=== PATIENT | female | born 1955 | race Caucasian/White ===

== ENCOUNTER → 2016-07-20 | Outpatient (CLI) | payer OTHER ==
--- NOTE | 2016-07-20 14:42 | DX ---
Chest, Two Views at 1325 hours History: Pleural effusion. Dyspnea.. Comparison: April 2014 Findings: Cardiac silhouette is within normal range. Patchy opacity in the right cardiophrenic angle probably representing pneumonia with minimal right pleural effusion. Mild bilateral peribronchial thi ckening again noted. IMPRESSION: 1. Suspect early right lower lobe pneumonia with minimal right pleural effusion. 2. Recommend follow-up until clear.
== END ==
LOC: CIMAGING 13:15
PROVIDERS: ATTEND Internal Medicine Critical Care Medicine
DX: R91.8 Other nonspecific abnormal finding of lung field (principal); J90 Pleural effusion, not elsewhere classified
CPT/HCPCS: 71020-PO

== ENCOUNTER → 2016-11-09 | Outpatient (CLI) | payer OTHER | LOC: CIMAGING 07:55 | PROVIDERS: ATTEND Internal Medicine | DX: K74.60 Unspecified cirrhosis of liver (principal); N20.0 Calculus of kidney | CPT/HCPCS: 76705-PO ==

== ENCOUNTER → 2016-11-15 | Outpatient (CLI) | payer OTHER | LOC: FIMAGING 09:36 | PROVIDERS: ATTEND Family Medicine | DX: D17.21 Benign lipomatous neoplasm of skin and subcutaneous tissue of right arm (principal) ==

== ENCOUNTER → 2017-02-19 | Outpatient (CLI) | payer OTHER ==
[~2017-02-19] MED LIST: IOPAMIDOL (ISOVUE 370) 100 ML BTL IV ONE
== END ==
LOC: CIMAGING 09:11
DX: I67.1 Cerebral aneurysm, nonruptured (principal)
CPT/HCPCS: 70496-PO; Q9967

== ENCOUNTER 2017-04-20 16:36 | Emergency (ER) | payer OTHER ==
[2017-04-20 16:55] VITALS: TEMP 97.7
[2017-04-20] MEDS ORDERED: NS 1,000 ML IV ONE (17:02)
--- NOTE | 2017-04-20 17:11 | CPEKG ---
Heart Rate: 99 RR Interval: 606 P-R Interval: 132 QRSD Interval: 88 QT Interval: 372 QTC Interval: 478 P [place]: -1 QRS [place]: 54 T Wave [place]: 73 EKG Severity - NORMAL ECG - EKG Impression: SINUS RHYTHM Electronically Signed By: Kaz Cruz 20-Apr-2017 22:15:58
--- NOTE | 2017-04-20 17:19 | EDPHY ---
H & P Stated Complaint: Pt. states had another stent placed 04/18 for brain aneurysm, pain llq,dizzy Time Seen by Provider: 04/20/17 16:50 HPI/ROS: This patient had a interventional radiology procedure at [facility] yesterday for cerebral aneurysm with vascular access in the left lower belly who was discharged without complications today and while walking had abrupt onset of severe left lower belly/groin pain 9/10 intensity sharp in nature followed by onset of lightheadedness shortly prior to arrival. She complains of continuing increasing lower abdominal pain. Her asked for a wheelchair to assist in getting her from his private vehicle the brought her in with. The patient reports associated lightheadedness and feeling of tingling in the left leg. ROS: Constitutional: Positive for fatigue HEENT: No complaints no headache. Pulmonary: Reports shortness of breath. Cardiovascular: She complains of chest pain during my exam of moderate intensity achy in nature substernal location GI: As per HPI : No complaints Integumentary: No complaints 10 point ROS is otherwise negative. Source: Patient, Family - Personal History Tetanus Vaccine Date: < 10 years - Medical/Surgical History PMH: Cerebral aneurysm Hx Asthma: No Hx Chronic Respiratory Disease: Yes Hx Diabetes: Yes Hx Cardiac Disease: No Hx Renal Disease: No Hx Cirrhosis: No Hx Alcoholism: No Hx HIV/AIDS: No Hx Splenectomy or Spleen Trauma: No Other PMH: Tubal ligation, asthma, COPD, HTN, brain aneurysm repair, parathyroid surgery, right carotid surgery, alcoholism - Social History Smoking Status: Former smoker Alcohol Use: Rarely Drug Use: None - Physical Exam Exam: Vital signs are notable for hypotension with the systolic pressure on arrival 75 recheck with manual-less than 75 systolic. Pulse of 105 mildly tachypneic. O2 sat 95% room air General Appearance: Alert, some distress due to pain. Eyes: Pupils equal and round no pallor or injection. ENT, Mouth: Mucous membranes moist. Respiratory: There are no retractions, lungs are clear to auscultation. Cardiovascular: Tachycardic. No murmur gallop or rub. Pulses feel weak but symmetric-dorsalis pedis popliteal bilateral lower extremities. Gastrointestinal: Distended, exquisite tenderness in lower belly parent vascular access site left lower belly just superior to the inguinal canal clean dry intact 8 mm wound with no dressing no bleeding Neurological: GCS 15 with no focal deficits. Skin: Warm and dry, no rashes. Musculoskeletal: Neck is supple nontender. Extremities are symmetrical, full range of motion. Psychiatric: Patient is anxious. DIFFERENTIAL DIAGNOSIS: After history and physical exam differential diagnosis was considered for hemorrhagic shock, bleeding from vascular access site, intra- abdominal hematoma, acute abdomen, vasovagal from postsurgical pain, mi, anemia Constitutional: Initial Vital Signs Temperature (C) 36.5 C 04/20/17 16:51 Heart Rate 112 H 04/20/17 16:51 Respiratory Rate 24 H 04/20/17 16:51 Blood Pressure 90/58 L 04/20/17 16:51 O2 Sat (%) 95 04/20/17 16:51 O2 Delivery Mode Room Air Allergies/Adverse Reactions: erythromycin base [Erythromycin Base] Allergy (Verified 04/20/17 16:38) losartan Allergy (Verified 04/20/17 16:50) Sulfa (Sulfonamide Antibiotics) Allergy (Verified 04/20/17 16:50) ANTIHISTAMINES Allergy (Uncoded 04/20/17 16:38) HCTZ Allergy (Uncoded 04/20/17 16:49) Home Medications: Medication Instructions Recorded Fluticasone/Salmeterol [Advair 1 each IH 05/25/12 250-50 Diskus] Furosemide 20 mg PO 05/25/12 MAGNESIUM [Magnesium Oxide 200 mg] 05/25/12 Metoprolol Tartrate 25 mg PO 05/25/12 Sodium Chloride 05/25/12 predniSONE [Prednisone] 10 mg PO 05/25/12 Hydrocodone Bit/Acetaminophen 1 tab PO Q4-6PRN PRN 09/06/12 [Vicodin ES] Simvastatin 1 gm MC 09/06/12 Guaifenesin/Codeine Phosphate 10 ml PO Q6 PRN #120 ml 07/02/13 [Guaifenesin-Codeine Solution] Oseltamivir Phosphate [Tamiflu 75 75 mg PO BIDMEAL 5 Days cap 07/02/13 mg (RX)] Medical Decision Making - Diagnostics EKG Interpretation: 12 lead EKG performed at 5:09 p.m. reveals sinus rhythm at 99 Intervals: Normal throughout Her axis: Normal throughout ST segments: Normal throughout Overall assessment: Normal EKG ED Course/Re-evaluation: Given concern for potential hemorrhagic shock from bleeding from vascular access site with patient with significant hypotension associated with her symptoms, transfer her to [facility] trauma center via emergent transport. Vascular abscess via right AC-started a pressure infuser, labs held in tube sent to [facility]. EMS here prior to 2nd IV being started. I spoke with Dr. Donny wiseman emergency physician at [facility] regarding this transfer any accepts her for emergent transport. Departure - Departure Disposition: Acute Care Hospital Not [facility] Clinical Impression: Shock, Acute abdomen, Postop interventional Radiology Chest pain Qualifiers: Chest pain type: unspecified Qualified Code(s): R07.9 - Chest pain, unspecified Condition: Critical
[2017-04-20 18:08] VITALS: O2SAT 97
[2017-04-20 18:36] VITALS: BP 77/67; PULSE 102; RESP 18
== END 2017-04-20 17:20 | disposition short-term general hospital (02) ==
LOC: CED 16:36
DX: T81.10XA Postprocedural shock unspecified, initial encounter (principal); E11.9 Type 2 diabetes mellitus without complications; J44.9 Chronic obstructive pulmonary disease, unspecified; I10 Essential (primary) hypertension; R07.9 Chest pain, unspecified; Z87.891 Personal history of nicotine dependence; Y73.2 Prosthetic and other implants, materials and accessory gastroenterology and urology devices associated with adverse incidents

== ENCOUNTER → 2017-05-11 | Outpatient (CLI) | payer OTHER | LOC: CIMAGING 07:19 | PROVIDERS: ATTEND Internal Medicine | DX: K70.30 Alcoholic cirrhosis of liver without ascites (principal) | CPT/HCPCS: 76700-PO ==

== ENCOUNTER → 2017-07-30 | Outpatient (CLI) | payer OTHER ==
[~2017-07-30] MED LIST changes: -IOPAMIDOL (ISOVUE 370) 100 ML BTL IV ONE; +IOPAMIDOL (ISOVUE-300) 100 ML BTL ONE
== END ==
LOC: CIMAGING 08:21
PROVIDERS: ATTEND Internal Medicine
DX: R93.2 Abnormal findings on diagnostic imaging of liver and biliary tract (principal); K59.00 Constipation, unspecified
CPT/HCPCS: 74170-PO; Q9967

== ENCOUNTER → 2017-10-16 | Outpatient (CLI) | payer OTHER ==
[~2017-10-16] MED LIST changes: +IOPAMIDOL (ISOVUE 370) 100 ML BTL IV ONE; -IOPAMIDOL (ISOVUE-300) 100 ML BTL ONE
== END ==
LOC: CIMAGING 08:16
DX: R29.818 Other symptoms and signs involving the nervous system (principal); Z86.69 Personal history of other diseases of the nervous system and sense organs
CPT/HCPCS: 70496-PO; Q9967

== ENCOUNTER → 2018-03-26 | Outpatient (CLI) | payer OTHER | LOC: CIMAGING 09:13 | PROVIDERS: ATTEND Family Medicine | DX: Z12.31 Encounter for screening mammogram for malignant neoplasm of breast (principal) ==

== ENCOUNTER → 2018-03-27 | Outpatient (CLI) | payer OTHER | LOC: CIMAGING 10:26 | PROVIDERS: ATTEND Family Medicine | DX: M79.672 Pain in left foot (principal); M19.072 Primary osteoarthritis, left ankle and foot | CPT/HCPCS: 73630-PO ==

== ENCOUNTER → 2018-04-02 | Outpatient (CLI) | payer OTHER | LOC: CIMAGING 10:18 | DX: R29.818 Other symptoms and signs involving the nervous system (principal); I65.22 Occlusion and stenosis of left carotid artery | CPT/HCPCS: 70496-PO; Q9967 ==

== ENCOUNTER → 2018-08-13 | Outpatient (CLI) | payer OTHER | LOC: CIMAGING 07:15 | PROVIDERS: ATTEND Internal Medicine | DX: K70.31 Alcoholic cirrhosis of liver with ascites (principal); K80.20 Calculus of gallbladder without cholecystitis without obstruction | CPT/HCPCS: 76705-PO ==